=== PATIENT | male | born 1970 | race African-American/Black ===

== ENCOUNTER 2021-03-12 15:23 | Emergency (ER) | payer OTHER ==
[~2021-03-12] VITALS: Ht 180.3 cm; Wt 115.7 kg
[~2021-03-12 15:23] MED LIST: VASOTEC10 MG
[2021-03-12] MEDS ORDERED: PAXIL20 MG (15:41)
== END 2021-03-12 21:16 | disposition home or self-care (01) ==
LOC: ER 15:23
DX: E11.65 Type 2 diabetes mellitus with hyperglycemia (principal)

== ENCOUNTER 2022-03-01 13:24 | Outpatient (CLI) | payer OTHER ==
[~2022-03-01 13:24] MED LIST changes: +PAXIL20 MG
== END 2022-03-01 13:40 | disposition home or self-care (01) ==
LOC: TOM 13:24
PROVIDERS: ATTEND Neurological Surgery
DX: M48.06 Spinal stenosis, lumbar region (principal); Z98.1 Arthrodesis status